=== PATIENT | female | born 1985 | race Asian ===

== ENCOUNTER 2017-01-25 03:30 | Inpatient (IN) | payer SELFPAY ==
[~2017-01-25] VITALS: Ht 170 cm; Wt 76.0 kg
[2017-01-25 03:45] VITALS: BP 130/78
[2017-01-25] MEDS ORDERED: NALBUPHINE HYDROCHLORIDE 10 MG/ML VIAL IVP PRN (04:20)
[2017-01-25] MEDS ORDERED: PROMETHAZINE 25 MG/ML VIAL IVP PRN (04:20)
[2017-01-25] MEDS ORDERED: OXYTOCIN 20 UNITS/LR PREMIX 1,000 ML IV SCH (04:20)
[2017-01-25] MEDS ORDERED: OXYTOCIN 10 UNITS/ML VIAL IM SCH (04:20)
[2017-01-25] MEDS ORDERED: LACTATED RINGERS 500 ML IV ONE (04:20)
[2017-01-25] MEDS ORDERED: OXYTOCIN 20 UNITS/LR PREMIX 1,000 ML IV ONE (04:59)
[2017-01-25 05:06] LABS: BILIRUBIN,URINE NEGATIVE (NEGATIVE); COLOR,URINE YELLOW (YELLOW); LEUKOCYTE ESTERASE ,URINE 1+ (NEGATIVE); NITRITE, URINE NEGATIVE (NEGATIVE); PROTEIN,URINE NEGATIVE (NEGATIVE); UGLUCOSE NEGATIVE (NEGATIVE); UROBILINOGEN,URINE 0.2 EU/dL (0.2 - 1)
[2017-01-25 05:06] LABS: BASOPHILS # (AUTO) 0.1 K/uL (0.00-0.22); BASOPHILS % (AUTO) 0.6 % (0.0-2.0); EOSINOPHILS # (AUTO) 0.2 K/uL (0-0.4); EOSINOPHILS % (AUTO) 2.1 % (0.0-4.0); HEMATOCRIT 33.2 % (36-48); HEMOGLOBIN 10.8 g/dL (12.0-16.0); LYMPHOCYTES # (AUTO) 1.9 K/uL (2.5-16.5); LYMPHOCYTES % (AUTO) 17.8 % (20.5-51.1); MEAN CORPUSCULAR HEMOGLOBIN 29 pg (27-31); MEAN CORPUSCULAR HGB CONC 33 g/dL (33-37); MEAN CORPUSCULAR VOLUME 88 fL (80-94); MONOCYTES % (AUTO) 9.2 % (1.7-9.3); NEUTROPHILS # (AUTO) 7.4 K/uL (1.8-7.7); NEUTROPHILS % (AUTO) 70.3 % (42.2-75.2); PLATELET COUNT (AUTO) 165 K/uL (140-450); RED BLOOD CELL COUNT(AUTO) 3.76 MIL/uL (4.20-5.40); RED CELL DISTRIBUTION WIDTH 12.9 % (11.6-13.7); WHITE BLOOD COUNT (AUTO) 10.6 K/uL (4.8-10.8)
[2017-01-25] MEDS: LACTATED RINGERS 1,000 ML IV SCH ×2 (05:39→09:45)
[2017-01-25 05:51] LABS: APPEARANCE,URINE SLIGHTLY HAZY (CLEAR)
[2017-01-25 05:54] LABS: BLOOD, URINE 1+ (NEGATIVE)
[2017-01-25 05:55] LABS: BACTERIA,URINE FEW /HPF (None Seen); RBC,URINE 0-5 (RARE) /HPF (0-5); SQUAMOUS EPITHELIAL CELL,UR 0-3 (FEW) /LPF (0-3 (FEW)); WBC,URINE 0-5 (RARE) /HPF (0-5)
[2017-01-25] MEDS ORDERED: PREN-546 PO (06:00)
[2017-01-25 07:00] LABS: HIV RAPID SCREEN NON-REACTIVE (NON REACTIV)
--- NOTE | 2017-01-25 09:00 | NUR ---
PATIENT HAS BEEN SCREENED AND CATEGORIZED LOW NUTRITION RISK. PATIENT WILL BE SEEN WITHIN 7 DAYS OF ADMISSION. 01/31/[address]
[2017-01-25 09:31] LABS: RAPID PLASMA REAGIN NON-REACTIVE (Non Reactiv)
[2017-01-25] MEDS ORDERED: BUPIVACAINE 0.125%/NS PREMIX 250 ML ONE (10:19)
[2017-01-25] MEDS ORDERED: OXYTOCIN 10 UNITS/ML VIAL ONE (15:31)
[2017-01-25] MEDS ORDERED: oxyCODONE/APAP 5/325 MG 1 TAB TAB PO PRN (22:35)
[2017-01-25] MEDS ORDERED: HYDROcodone/APAP 5/325 MG 1 TAB TAB PO PRN (22:35)
[2017-01-25] MEDS ORDERED: METHYLERGONOVINE 0.2 MG/ML AMP IM PRN (22:35)
[2017-01-25] MEDS ORDERED: IBUPROFEN 800 MG TAB PO PRN (22:35)
[2017-01-25] MEDS ORDERED: BENZOCAINE/MENTHOL 20%-0.5% 60 GM CAN TP PRN (22:35)
[2017-01-25] MEDS ORDERED: TEMAZEPAM 15 MG CAP PO PRN ×2 (22:35)
[2017-01-25] MEDS ORDERED: MEASLES, MUMPS, AND RUBELLA 1 VIAL SQVAC PRN ×2 (22:35)
[2017-01-25] MEDS ORDERED: OXYTOCIN 10 UNITS/ML VIAL IM PRN (22:35)
[2017-01-25] MEDS: IBUPROFEN 800 MG TAB PO PRN (22:58)
[2017-01-26 07:02] LABS: HEMATOCRIT 32.1 % (36-48); HEMOGLOBIN 10.4 g/dL (12.0-16.0)
[2017-01-26] MEDS: IBUPROFEN 800 MG TAB PO PRN (08:45)
[2017-01-26] MEDS ORDERED: DOCUSATE SOD/SENNA 50/8.6 MG 1 TAB PO SCH (21:00)
[2017-01-27] MEDS ORDERED: IBUP800T99 PO (10:30)
== END 2017-01-27 13:30 | disposition home or self-care (01) | DRG 775 ==
LOC: MLD 03:30 → MFCC 21:00
PROVIDERS: ADMIT Obstetrics & Gynecology; ATTEND Obstetrics & Gynecology
PROC: 10E0XZZ Delivery of Products of Conception, External Approach (ICD-10-PCS; principal; 2017-01-25)
PROC: 0W8NXZZ Division of Female Perineum, External Approach (ICD-10-PCS; 2017-01-25)
PROC: 00HU33Z Insertion of Infusion Device into Spinal Canal, Percutaneous Approach (ICD-10-PCS; 2017-01-25)
PROC: 3E0R3CZ (ICD-10-PCS; 2017-01-25)
PROC: 3E0234Z Introduction of Serum, Toxoid and Vaccine into Muscle, Percutaneous Approach (ICD-10-PCS; 2017-01-26)
DX: O69.1XX0 Labor and delivery complicated by cord around neck, with compression, not applicable or unspecified (principal); Z3A.38 38 weeks gestation of pregnancy; Z37.0 Single live birth; Z83.3 Family history of diabetes mellitus; Z87.74 Personal history of (corrected) congenital malformations of heart and circulatory system; Z23 Encounter for immunization
CPT/HCPCS: 36415; 51702; 59200; 59409; 81001; 85018; 85025; 86592; 86886; 86900; 86901; 87086; 90715; J2590; J3490; J7120